=== PATIENT | male | born 1960 | race American Indian/Alaskan Native ===

== ENCOUNTER 2022-03-09 09:51 | Outpatient (CLI) | payer OTHER ==
--- NOTE | 2022-03-09 10:59 | XRay Report ---
CHEST 2 VIEWS INDICATION / CLINICAL INFORMATION: HEART DEFIBRILLATOR CONGESTIVE HEART FAILURE. COMPARISON: None available. FINDINGS: SUPPORT DEVICES: Left-sided cardiac defibrillator with lead projecting over the right ventricle. HEART / MEDIASTINUM: No significant abnormality. LUNGS / PLEURA: No significant pulmonary or pleural abnormality. No pneumothorax. ADDITIONAL FINDINGS: No significant additional findings. IMPRESSION: 1. No acute findings. Signer Name: Sourav Collins MD Signed: 03/09/2022 10:55 AM Workstation Name: [facility]
== END 2022-03-09 09:52 | disposition home or self-care (01) ==
LOC: XRAY 09:51
PROVIDERS: ATTEND Internal Medicine
DX: I50.9 Heart failure, unspecified (principal); G47.33 Obstructive sleep apnea (adult) (pediatric); E11.9 Type 2 diabetes mellitus without complications
CPT/HCPCS: 71046

== ENCOUNTER 2022-05-08 11:36 | Outpatient (CLI) | payer OTHER ==
--- NOTE | 2022-05-08 13:09 | XRay Report ---
RIGHT HIP 4 VIEW(S) INDICATION / CLINICAL INFORMATION: RT HIP PAIN COMPARISON: None available. FINDINGS: BONES / JOINT(S): No acute fracture or subluxation. Intact right total hip arthroplasty without perip rosthetic fracture or evidence for hardware loosening. Moderate left hip degenerative osteoarthritis with joint space narrowing and marginal osteophytes. SOFT TISSUES: No significant abnormality. ADDITIONAL FINDINGS: None. IMPRESSION: 1. No acute findings. 2. Intact right total hip arthroplasty without periprosthetic fracture or other complication. 3. Moderate left hip degenerative osteoarthritis. Signer Name: Ty Jennings MD Signed: 05/08/2022 1:05 PM Workstation Name: [employer]
== END 2022-05-08 11:37 | disposition home or self-care (01) ==
LOC: XRAY 11:36
PROVIDERS: ATTEND Internal Medicine
DX: M16.12 Unilateral primary osteoarthritis, left hip (principal); Z96.641 Presence of right artificial hip joint